=== PATIENT | female | born 1980 | race Hispanic/Latino ===

== ENCOUNTER 2019-03-30 08:42 | Day surgery (SDC) | payer BC ==
[2019-03-30] MEDS ORDERED: Sodium Chloride 0.9% 20 ML ONE (08:48)
[2019-03-30 09:13] VITALS: BP 127/65; TEMP 98.9
== END 2019-03-30 13:11 | disposition home or self-care (01) ==
LOC: ONC/OP 08:42
PROVIDERS: ATTEND Student in an Organized Health Care Education/Training Program
DX: D50.9 Iron deficiency anemia, unspecified (principal)
CPT/HCPCS: 96365; J1756; J3490